=== PATIENT | female | born 1955 | race Caucasian/White ===

== ENCOUNTER → 2017-05-23 | Day surgery (SDC) | payer OTHER ==
[~2017-05-23] MED LIST: BUPIVACAINE HCL PF 0.25% 10 ML VIAL ONE; BUPIVACAINE HCL PF 0.5% 10 ML VIAL ONE; BUPIVACAINE/EPINEPHRINE 0.25% PF 10 ML VIAL ONE; HYDROCORTISONE SOD SUCCINATE 100 MG VIAL ONE; KETOROLAC TROMETHAMINE 30 MG/ML (IVP) VIAL IV PUSH ONE; LACTATED RINGER'S 1000 ML INJ 1,000 ML ONE; MEPERIDINE HCL 25 MG/ML VIAL ONE; MIDAZOLAM HCL 2 MG/2 ML VIAL ONE; ONDANSETRON HCL 4 MG/2 ML VIAL IV PUSH ONE; PROPOFOL 100 MG/10 ML INJ IV ONE; ceFAZolin 2 GM PREMIX 50 ML ONE
--- NOTE | 2017-05-24 08:23 | MP ---
cc: Guicho Bauer DPM DATE OF OPERATION: 05/23/2017 PREOPERATIVE DIAGNOSIS: Left foot plantar fasciitis, second digit hammertoe, metatarsalgia plantar, plate tear second metatarsophalangeal joint chronically, dislocating second metatarsophalangeal joint ingrown toenail, left hallux medial nail border. POSTOPERATIVE DIAGNOSIS: Left foot plantar fasciitis, second digit hammertoe, metatarsalgia plantar, plate tear second metatarsophalangeal joint chronically, dislocating second metatarsophalangeal joint ingrown toenail, left hallux medial nail border. PROCEDURES PERFORMED: 1. Left foot second digit PIPJ fusion. 2. Second metatarsal osteotomy. 3. Plantar plate repair, joint capsule, chronic dislocating second MPJ. 4. Plantar fasciotomy debridement. 5. Partial nail avulsion, right hallux. MATERIALS USED: X 1 JuggerKnot 1.9 mm, ProNoxis, 2.0 screw, 14 mm in length, titanium. INJECTABLES: 30 mL of 0.25% Marcaine plain. TOURNIQUET TIME: 215 mmHg for 86 minutes. ANESTHESIA: General, local. ESTIMATED BLOOD LOSS: Less than 30 mL. COMPLICATIONS: None. INDICATIONS FOR PROCEDURE: This is a pleasant 61-year-old female with worsening forefoot pain. She has received conservative care, which has failed. We opted to move forward with correction of the second digit hammertoe. However, clinically the patient has a plantar plate tear. The MRI was not so convincing. However, clinically we had our suspicions. The patient continued to have chronic heel pain before proceeding back to the operative suite. The patient was complaining of an ingrown toenail. She wished to have this addressed as well, so this procedure was added at the last minute to hopefully prevent the need for a postop ingrown toenail while she is healing the bony procedures. Risks, and benefits explained. No guarantees given or implied regarding the outcome. PROCEDURE IN DETAIL: Under mild sedation, the patient was brought in the operating room, placed on the operating table in supine position. Following the induction of general anesthesia, local anesthesia was obtained about the left forefoot utilizing standard block fashion. The left foot was then scrubbed, prepped and draped in the usual aseptic fashion. The foot was elevated and exsanguinated. The previously placed mid calf tourniquet was inflated 215 mmHg. First focus was the plantar fasciitis. A grid pattern was made in the preoperative setting of the insertional medial plantar fascial band utilizing a 0.062 K-wire, this was perforated deep to the plantar fascia, allowing for a micro incision and channel for the [place] microdebridement wand. This was then deployed into approximately 20 holes spaced about 4 mm apart. This was deployed upon feeling the plantar fascia at its most superficial portion and then a charged setting of 4 and then deployed deep also at charged a setting of 4. [address] at the multiple stab incision sites utilizing the K-wire completing the fascial debridement. Next, an incision was made over the dorsal aspect of the second digit which was start slightly curvilinear at the level of the MPJ. Sharp and blunt dissection was carried down to the level of the dermal junction. Bovie and ligation took place of venous structures. Sharp and blunt dissection was carried down to the extensor digitorum longus tendon. The sling wing apparatus was noted to be tight. It was then transected. A Z-tendon lengthening approach took place, allowing access to the second MPJ. A linear capsulotomy was performed and the plantar surface of the MPJ was examined and there was noted to be a perforated hole in the plantar medial aspect of the plantar plate. Next, an offset dorsal distal to plantar proximal osteotomy was performed and the capital fragment second metatarsal was transposed proximally 2 mm and fixated utilizing x 1 2.0 screw. The prominent dorsal shelf was transected to allow smooth range of motion. Attention was then directed plantar. A Z curvilinear incision took place, avoiding the weightbearing surface, allowing access to the plantar plate. Sharp and blunt dissection was carried down through subcutaneous fat and fascia, being careful not to violate any neurovascular structures. The plantar most aspect of the flexor digitorum longus tendon was identified, pulled aside from the dissecting plane and there was noted to be the plantar plate tear. Next, the JuggerKnot tendon anchor was deployed through the plantar aspect of the second digit proximal phalanx base, anchored dorsally and this allowed suturing and repair of the base of the proximal phalanx to the healthy portion of the proximal aspect of the plantar plate. The plantar plate was then plicated utilizing the JuggerKnot and there was noted to be stability, without any dislocation moment and really good alignment. The wound was then closed, deep dermis and adipose utilizing 3-0 Vicryl. Skin was closed utilizing 3-0 nylon. Attention was then redirected to the dorsal aspect of the PIPJ of the second digit. The head of the proximal phalanx was transected. The base of the middle phalanx articular surface was removed. A wire was then placed through the middle of the distal phalanx and retrograded back across the proximal phalanx, stopping just short of the second MPJ, concluding the hammertoe bony osseous procedure. There was noted to be rectus alignment, stable toe. Next, under loose physiologic tension, the extensor digitorum longus tendon was repaired. Deep dermis was closed utilizing Vicryl. Skin was closed utilizing nylon. Attention was then directed to the patient's hallux. There was noted to be highly incurvated medial nail border. A [place] elevator was introduced in the medial nail corner, freeing up the plantar attachment of the nail to the nail bed. There was no purulence. There was no obvious subungual tumor. Utilizing a bone cutter, the medial portion of the nail was transected back to the level of the nail matrix. Bovie cautery took place to avoid excessive bleeding. The nail was discarded. A bulky bandage was placed on the multiple incisions. Upon relieving the tourniquet, there was a prompt hyperemic response to all digits delayed capillary refill time. The patient is nonweightbearing. She will followup within 3-5 days for bandage change. TRANG Guzmán , 05:19 PM , 05:48 PM
== END | disposition home or self-care (01) ==
LOC: ESDC 13:02
PROVIDERS: ATTEND Podiatrist Foot & Ankle Surgery
DX: M72.2 Plantar fascial fibromatosis (principal); M20.42 Other hammer toe(s) (acquired), left foot; M77.42 Metatarsalgia, left foot; L60.0 Ingrowing nail
CPT/HCPCS: 00400; 01470; 01480; 11730; 28008; 28285; 28308; 73620; 76000; C1713; J0690; J1720; J1885; J2175; J2250; J2405; J3010; J7120